=== PATIENT | male | born 1965 | race Caucasian/White ===

== ENCOUNTER 2017-04-27 10:13 | Observation (INO) | payer OTHER ==
--- NOTE | 2017-04-27 10:31 | ED ---
Head Injury - HPI Summary HPI Summary: 51M presents with head injury today. He states he was going to see a client and does not remember seeing the client and does not remember falling. The next thing he remembers is being back in his office. He lost consciousness for a couple minutes. He denies any chest pain or SOB. He denies any nausea or vomiting. he is on a baby aspirin. He admits to dizziness and a headache. He admits to right forearm pain. He denies any other pain. He denies any history of NC. Does not know when last tetanus is. Has large laceration that is actively bleeding to scalp. He is not on a blood thinner. He admits toneck pain. He is HIV positive. - History Of Current Complaint Chief Complaint: EDHeadInjury Stated Complaint: FALL AT WORK Time Seen by Provider: 04/27/17 10:20 Pain Intensity: 8 - Allergies/Home Medications Allergies/Adverse Reactions: Allergies Allergy/AdvReac Type Severity Reaction Status Date / Time Sulfa (Sulfonamide Allergy Rash Verified 04/27/17 10:41 Antibiotics) Home Medications: Home Medications ARIPiprazole TAB* [Abilify 15 MG TAB*] 15 mg PO DAILY 04/27/17 [History Confirmed 04/27/17] Aspirin EC Low Dose* [Ecotrin EC Low Dose 81 MG*] 81 mg PO DAILY 04/27/17 [ History Confirmed 04/27/17] Cobicistat [Tybost] 150 mg PO QPM 04/27/17 [History Confirmed 04/27/17] Diclofenac Sodium EC TAB* [Voltaren EC TAB*] 50 mg PO QAM 04/27/17 [History Confirmed 04/27/17] Dolutegravir (NF) [Tivicay (NF)] 50 mg PO BID 04/27/17 [History Confirmed ] Entecavir(NF) [Baraclude (NF)] 1 mg PO DAILY 04/27/17 [History Confirmed ] Finasteride TAB* [Proscar TAB*] 5 mg PO DAILY 04/27/17 [History Confirmed ] Gabapentin CAP(*) [Neurontin 400 mg CAP(*)] 800 mg PO QID 04/27/17 [History Confirmed 04/27/17] Lisinopril TAB* [Prinivil TAB*] 10 mg PO DAILY 04/27/17 [History Confirmed 04/27] Mirtazapine TAB* [Remeron TAB*] 15 mg PO BEDTIME 04/27/17 [History Confirmed ] Multivitamins/Minerals TAB* [Theragran/minerals TAB*] 1 tab PO DAILY 04/27/17 [ History Confirmed 04/27/17] OXcarbazepine TAB(*) [Trileptal 300 mg TAB(*)] 600 mg PO BID 04/27/17 [History Confirmed 04/27/17] Pravastatin (NF) [Pravachol (NF)] 60 mg PO DAILY 04/27/17 [History Confirmed ] Propranolol TAB* [Inderal TAB*] 120 mg PO BEDTIME 04/27/17 [History Confirmed ] Spironolactone TAB* [Aldactone TAB*] 25 mg PO DAILY 04/27/17 [History Confirmed 04/27/17] buPROPion TAB* [Wellbutrin TAB*] 20 mg PO BID 04/27/17 [History Confirmed ] metFORMIN* [Glucophage 1000 MG TAB *] 1,000 mg PO BID 04/27/17 [History Confirmed 04/27/17] PMH/Surg Hx/FS Hx/Imm Hx Endocrine/Hematology History: Reports: Hx Diabetes Cardiovascular History: Reports: Hx Hypertension Denies: Hx Myocardial Infarction Infectious Disease History: No Infectious Disease History: Reports: Hx Human Immunodeficiency Virus (HIV) Denies: Traveled Outside the [place] in Last 30 Days - Family History Known Family History: Positive: Hypertension Review of Systems Negative: Fever Negative: Chest Pain Negative: Shortness Of Breath Positive: Headache All Other Systems Reviewed And Are Negative: Yes Physical Exam Triage Information Reviewed: Yes Vital Signs On Initial Exam: Initial Vitals Temp Pulse Resp BP Pulse Ox 97.9 F 87 16 156/110 98 04/27/17 10:15 04/27/17 10:15 04/27/17 10:15 04/27/17 10:15 04/27/17 10:15 Vital Signs Reviewed: Yes Appearance: Positive: Well-Appearing Skin: Positive: Other - 7cm stellate laceration to back of scalp Eyes: Positive: Normal, EOMI, DARRYL, Conjunctiva Clear ENT: Positive: Normal ENT inspection, Pharyngeal erythema, TMs normal Neck: Positive: Other: - tenderness to neck Respiratory/Lung Sounds: Positive: Clear to Auscultation, Breath Sounds Present Cardiovascular: Positive: Normal, RRR Abdomen Description: Positive: Nontender, Soft Bowel Sounds: Positive: Present Musculoskeletal: Positive: Other - tenderness right forearm Neurological: Positive: Sensory/Motor Intact, Alert, Oriented to Person Place, Time, CN Intact II-III Psychiatric: Positive: Normal - [place] Coma Scale Best Eye Response: 4 - Spontaneous Best Motor Response: 6 - Obeys Commands Best Verbal Response: 5 - Oriented Coma Scale Total: 15 Procedures - Laceration/Wound Repair 1 Location: head Description: Irregular Anesthesia: Local, 1.0%, Epi Length, Depth and Shape: 7cm length in total stellate Irrigated w/ Saline (ccs): 200 Closure: Single Layer, [place] #__ - 5 Suture Type: Prolene - 4-0 Number of Sutures: 5 - placed 5 sutures and 5 sutures Layer Closure?: No Diagnostics - Vital Signs Vital Signs Temp Pulse Resp BP Pulse Ox 04/27/17 10:15 97.9 F 87 16 156/110 98 - Laboratory Result Diagrams: 04/27/17 13:20 04/27/17 13:20 Lab Statement: Any lab studies that have been ordered have been reviewed, and results considered in the medical decision making process. - Radiology forearm Xray Interpretation: No Acute Changes Radiology Interpretation Completed By: Radiologist - CT brain CT Interpretation: Positive (See Comments) - IMPRESSION: THERE IS A SMALL RIGHT- SIDED FALCINE SUBDURAL HEMATOMA MEASURING 0.2 CM IN DEPTH. PRELIMINARY FINDINGS WERE DISCUSSED WITH GAMALIEL HENRIQUEZ AT APPROXIMATELY 11:25 AM ON APRIL 27, 2017. CT Interpretation Completed By: ED Physician neck CT Interpretation: No Acute Changes CT Interpretation Completed By: Radiologist - EKG No standard instances Cardiac Rate: NL EKG Rhythm: Sinus Rhythm EKG Interpretation: sinus rhythm Head Injury Course/Dx Course Of Treatment: 51M presents with head injury today. He states he was going to see a client and does not remember seeing the client and does not remember falling. The next thing he remembers is being back in his office. He lost consciousness for a couple minutes. He denies any chest pain or SOB. He denies any nausea or vomiting. he is on a baby aspirin. He admits to dizziness and a headache. He admits to right forearm pain. He denies any other pain. He denies any history of NC. Does not know when last tetanus is. Has large laceration that is actively bleeding to scalp. He is not on a blood thinner. He admits to neck pain. He is HIV positive. placed 5 sutures and 5 girish into wound as continued to perfusely bleed. CT shows small subdural hematoma. spoke with dr berry said get repeat CT in 8 hours. does not need surgery. discussed with dr strong who agrees to admit for subdural and potential syncope work up - Diagnoses Differential Diagnosis/HQI/PQRI: Concussion With LOC, Contusion, Intracranial Bleed, Laceration Provider Diagnoses: Subdural hematoma, Scalp laceration, Head injury with loss of consciousness, Neck pain, Right forearm pain - Critical Care Time Critical Care Time: 75-104 min - 80 Discharge - Discharge Plan Condition: Stable Disposition: ADMITTED TO [facility] Referrals: Dayton Stewart MD [Primary Care Provider] -
--- NOTE | 2017-04-27 11:26 | RAD ---
INDICATION: Right forearm injury. TECHNIQUE: 2 views of the right forearm were obtained. FINDINGS: The bones are in normal alignment. No fracture is seen. IMPRESSION: NO EVIDENCE FOR FRACTURE.
--- NOTE | 2017-04-27 11:29 | RAD ---
HISTORY: Head injury, loss of consciousness COMPARISONS: None TECHNIQUE: Multiple contiguous axial CT scans were obtained of the head without intravenous contrast. FINDINGS: HEMORRHAGE/INFARCT: There is a small focus of falcine subdural along the anterior falx on axial image 21. Elsewhere, there is no hemorrhage or acute infarct. MASSES/SHIFT: There is no mass or shift. EXTRA-AXIAL SPACES: As noted above, there is a small falcine subdural in the right measuring 0.2 cm in depth. SULCI AND VENTRICLES: The sulci and ventricles are normal in size and position for the patient's stated age. CEREBRUM: There are no focal parenchymal abnormalities. BRAINSTEM: There are no focal parenchymal abnormalities. CEREBELLUM: There are no focal parenchymal abnormalities. VESSELS: The vessels are grossly normal. PARANASAL SINUSES: The left maxillary sinus is atelectatic. There is opacification of left maxillary sinus and the posterior ethmoid air cells on the right. ORBITS: The orbits are unremarkable. BONES AND SOFT TISSUE: There is soft tissue swelling of the occipital scalp. Incidentally noted is a dysraphic defect of the posterior arch of C1. OTHER: None IMPRESSION: THERE IS A SMALL RIGHT-SIDED FALCINE SUBDURAL HEMATOMA MEASURING 0.2 CM IN DEPTH. PRELIMINARY FINDINGS WERE DISCUSSED WITH GAMALIEL HENRIQUEZ AT APPROXIMATELY 11:25 AM ON APRIL 27, 2017.
--- NOTE | 2017-04-27 11:33 | RAD ---
INDICATION: Trauma, neck pain. COMPARISON: There are no prior studies available for comparison. TECHNIQUE: Contiguous axial sections were obtained from the skull base through the C7 vertebra. Images were reconstructed in the sagittal and coronal planes. FINDINGS: There is straightening of the cervical spine with loss of the normal cervical lordosis. No prevertebral soft tissue swelling or fracture is seen. There is spina bifida occulta at the C1 level posteriorly in the midline. At the C3-C4 level there is mild posterior uncinate process spurring and hypertrophic change within the facet joints. No significant spinal canal narrowing is present. There is mild bilateral neural foraminal narrowing. At the C3-C4 level there is mild posterior uncinate process spurring and hypertrophic change within the facet joints. No spinal canal narrowing is present. There is mild neural foraminal narrowing on the right side and moderate neural foraminal narrowing on the left side. At the C4-C5 level there is posterior uncinate process spurring. No spinal canal narrowing is present. There is mild to moderate bilateral neural foraminal narrowing. At the C5-C6 level there is moderate posterior uncinate process spurring. This causes mild spinal canal narrowing. There is moderate neural foraminal narrowing on the right side and mild neural foraminal narrowing on the left side. At the C6-C7 level there is mild posterior uncinate process spurring. No significant spinal canal narrowing is present. There is mild bilateral neural foraminal narrowing. IMPRESSION: 1. NO EVIDENCE FOR FRACTURE OR SUBLUXATION. 2. MODERATE CERVICAL SPONDYLOSIS.
[2017-04-27] MEDS ORDERED: Lidocaine 1% MPF wEPI 200,000* 30 ML SDV INJ ONE (12:16)
[2017-04-27] MEDS ORDERED: Lidocaine 1%* 5 ML VIAL ONE (12:22)
[2017-04-27] MEDS ORDERED: Lidocaine 2% EPI 1:200000 MPF* 20 ML VIAL ONE (12:22)
[2017-04-27] MEDS ORDERED: NS 0.9% 1000 ML* 1,000 ML IV ONE (13:09)
[2017-04-27] MEDS ORDERED: Tetan/Diph/Pertus SYR(Tdap)* 0.5 ML SYR(BOOSTRIX) use SYR IM ONE (13:10)
[2017-04-27 13:31] LABS: ABS Basophils 0.1 10^3/ul (0-0.2); ABS Eosinophils 0.1 10^3/ul (0-0.6); ABS Lymphocytes 3.6 10^3/ul (1.0-4.8); ABS Monocytes 0.7 10^3/ul (0-0.8); ABS Neutrophils 5.5 10^3/ul (1.5-7.7); ABS Nucleated RBC 0 10^3/ul; Eosinophil % 1.3 % (0-6); Hematocrit 43 % (42-52); Hemoglobin 14.5 g/dl (14.0-18.0); Lymphocyte % 35.8 % (25-47); Mean Corpuscular HGB Conc 34 g/dl (31-36); Mean Corpuscular Hemoglobin 30 pg (27-31); Mean Corpuscular Volume 88 fL (80-94); Mean Platelet Volume 10 um3 (7.4-10.4); Nucleated Red Blood Cells % 0.1; Platelet Count 155 10^3/ul (150-450); Red Blood Count 4.89 10^6/ul (4.0-5.4); Red Cell Distribution Width 12 % (10.5-15); White Blood Count 9.9 10^3/ul (3.5-10.8)
[2017-04-27] MEDS ORDERED: Morphine INJ* 2 MG/ML 1 ML CARPUJECT IV ONE (13:38)
[2017-04-27 13:51] LABS: EGFR Non-African American 73.2 (>60)
[2017-04-27] MEDS ORDERED: Dextrose 50% Syringe 50 ML* 25 GM/50 ML SYRINGE IV PUSH PRN (14:40)
[2017-04-27] MEDS ORDERED: Acetaminophen TAB* 325 MG PO PRN (17:03)
[2017-04-27] MEDS: Insulin LISPRO* 1 UNITS UNIT SUBCUT SCH (17:48)
[2017-04-27] MEDS: Gabapentin CAP(*) 400 MG PO SCH ×2 (17:55→22:38)
[2017-04-27] MEDS ORDERED: COBICISTAT 150 MG PO SCH (18:00)
--- NOTE | 2017-04-27 19:46 | HP ---
CC: Dr. Dayton Stewart, [place] * HISTORY AND PHYSICAL: DATE OF ADMISSION: 04/27/17 PRIMARY CARE PROVIDER: Dr. Dayton Stewart. ATTENDING PHYSICIAN: Dr. Kaden Bahena * (dictated by Kelsie Frey NP). CHIEF COMPLAINT: Fall with loss of consciousness. HISTORY OF PRESENT ILLNESS: Mr. Olmedo is a 51-year-old male with past medical history significant for diabetes mellitus, hypertension, HIV positive, gout, insomnia, and neurogenic bladder, who states he was in his usual state of health this morning and at work when he notes that he was supposed to be receiving a payment and going out to unlock a lock on a storage unit. He does not recall seeing the client or unlocking the storage locker. He reports waking up on the floor in his office. The neighbor stated that he had rung the door fuller, but he does not recall this either. He does not recall being outside or falling. There was blood noted outside where he had obviously fallen and hit his head outside. He denies any fever, chills, chest pain, cough , shortness of breath, nausea, or vomiting. He reports that he has chronic diarrhea and takes Imodium. He reports having a gout flare in his left heel and has been taking dong pills for that. He reports feeling lightheaded after the fall, but does not recall if he was lightheaded prior to the fall. He states he straight caths several times daily as needed for a neurogenic bladder. The patient was brought to the emergency room by EMS. In the ER, the patient had labs that were fairly unremarkable. His initial troponin was 0.00. He denied any chest pain. EKG showing a sinus rhythm, rate of 96, no acute signs of ischemia. There are no previous EKGs for comparison. He had a head CT showing a small right-sided subdural hematoma. C-spine that was negative and right forearm x-ray with no evidence for a fracture. He received sutures and girish to his occipital area of his head due to a large laceration. Due to the subdural hematoma, Dr. Lui was contacted and recommended admission with a repeat CT scan in 8 hours. PAST MEDICAL HISTORY: 1. Diabetes mellitus. 2. Hypertension. 3. HIV positive. 4. Gout. 5. Insomnia. 6. Neurogenic bladder. PAST SURGICAL HISTORY: Status post Aldo fundoplication. HOME MEDICATIONS: Include: 1. Metformin 1000 mg oral twice daily. 2. Diclofenac 50 mg oral every morning. 3. Spironolactone 25 mg oral daily. 4. Propranolol 120 mg oral daily at bedtime. 5. Pravastatin 60 mg oral daily. 6. Trileptal 600 mg oral twice daily. 7. Multivitamin 1 tablet daily. 8. Remeron 15 mg oral daily at bedtime. 9. Lisinopril 10 mg oral daily. 10. Gabapentin 800 mg oral 4 times daily. 11. Tivicay 50 mg oral twice daily. 12. Entecavir 1 mg oral daily. 13. Tybost 150 mg oral every evening. 14. Wellbutrin 20 mg oral twice daily. 15. Finasteride 5 mg oral daily. 16. Aspirin 81 mg oral daily. 17. Abilify 15 mg oral daily. ALLERGIES: SULFA. FAMILY HISTORY: The patient denies any family history of coronary artery disease. The patient's mother and father and both grandmothers, history of diabetes mellitus. The patient's mother and sister have a history of breast cancer. SOCIAL HISTORY: The patient is a former smoker. Reports he has not smoked in many years and only smoked when he was in the service. He rarely drinks alcohol. He denies recreational drug use. He lives with his partner, Glen, who will be his surrogate decision maker in the event he is unable to make decisions for himself. REVIEW OF SYSTEMS: I performed an 11-point review of systems. All the pertinent positives and negatives are mentioned in the history of present illness. The remaining review of systems is negative. PHYSICAL EXAMINATION GENERAL APPEARANCE: The patient is alert, pleasant, appears to be in no acute distress. HEENT: Normocephalic. The patient has a laceration to his occipital area with sutures and girish intact. Pupils are equal and reactive to light. Extraocular movements are intact. RESPIRATORY: There is no accessory muscle use. Lungs are clear to auscultation , bilateral. CARDIOVASCULAR: Regular rate and rhythm. S1 and S2 present. There are no murmurs, rubs, or gallops heard. ABDOMEN: Soft, nontender, nondistended. Bowel sounds present x4. EXTREMITIES: There is no lower extremity edema. DP and PT pulses are 2+ and symmetric. MUSCULOSKELETAL: There is no clubbing or cyanosis noted. The patient exhibits good strength in all extremities. NEUROLOGICAL: The patient is alert and oriented x4. Cranial nerves II through XII are grossly intact. The patient has equal strength, bilateral. PSYCHOLOGICAL: The patient is calm and cooperative. SKIN: The patient has an abrasion to his left lateral ankle in addition to laceration to the occipital area of his scalp that is open to air with sutures and girish present. DIAGNOSTIC STUDIES/LAB DATA: Sodium 133, potassium 4.7, chloride 103, CO2 22, BUN 16, creatinine 1.07, glucose 142. Troponin 0.00. White blood cell count 9.9, hemoglobin 14.9, hematocrit 43, platelet count 155. EKG from today shows a sinus rhythm, rate of 96. There are no acute signs of ischemia, there is a wandering baseline, some early repolarization. There are no previous EKGs for comparison. Head CT from today. Radiologist's impression: Small right-sided falcine subdural hematoma measuring 0.2 cm in depth. C-spine CT from today. Radiologist's impression: No evidence for fracture or subluxation. Moderate cervical spondylosis. Right forearm x-ray from today. Radiologist's impression: No evidence for fracture. IMPRESSION: Mr. Olmedo is a 51-year-old male with past medical history significant for human immunodeficiency virus, diabetes mellitus, hypertension, gout, insomnia, and a neurogenic bladder, who presented to the emergency room after a syncopal episode and was found to have a subdural hematoma. He will be admitted as an observation. ASSESSMENT/PLAN: 1. Subdural hematoma. Neurosurgery on-call has been contacted by the emergency room, who recommended the patient be admitted for observation with a repeat head CT scan in 8 hours. I have ordered a repeat CT scan for 8 hours after the previous one. The patient will have neuro checks every 4 hours. We will hold his aspirin and any chemical or DVT prophylaxis in the setting of the hematoma. 2. Syncope. The patient has no recollection of the events leading up to his fall or immediately after his fall. The patient will have an echo. We will do neuro checks. We will monitor him on telemetry to evaluate for any cardiac arrhythmias. 3. Human immunodeficiency virus. The patient will be continued on his home antiviral medications. 4. Depression. The patient will be continued on his home Wellbutrin. 5. Neurogenic bladder. The patient will be continued on his home finasteride and straight cath as needed. 6. Hypertension. The patient will be continued on his home lisinopril, spironolactone. 7. Diabetes mellitus. We will hold the patient's metformin. We will do fingersticks a.c. and h.s. I will place him on lispro sliding scale. 8. Hyperlipidemia. The patient will be continued on the statin. 9. Migraines. The patient will be continued on his home Pletal and propranolol. 10. Fluids, electrolytes, and nutrition. The patient will be on a consistent carbohydrate diet. 11. Code status. Full code. 12. DVT prophylaxis. The patient is at moderate risk. Will have SCDs. We will hold on chemical DVT prophylaxis in the setting of a subdural hematoma. 13. Disposition. Observation. TIME SPENT: Time for this admission was approximately 60 minutes, greater than half of that was spent with the patient and family discussing medications, past medical history, the events leading up to his arrival today, performing a physical examination. The case has been reviewed with the attending, Dr. Bahena, who agrees with the plan of care. Reviewed by MADELYN SIFUENTES-Quang 04/28/17 1556 [id number]/[facility] #: [id number] CECY
[2017-04-27] MEDS ORDERED: Morphine INJ* 2 MG/ML 1 ML CARPUJECT IV PRN (19:51)
[2017-04-27] MEDS: traMADol TAB* 50 MG PO PRN (20:47)
[2017-04-27] MEDS: Dolutegravir (NF) 50 MG TAB PO SCH (20:54)
--- NOTE | 2017-04-27 20:57 | RAD ---
INDICATION: "SDH" COMPARISON: Same day CT examination acquired at 1110 hours TECHNIQUE: Contiguous axial sections of the brain were obtained from the skull base to the vertex without contrast at 1959 hours. FINDINGS: The ventricles, cisterns and sulci are within normal limits. The webber-white matter differentiation is adequately maintained and there is no sulcal effacement. No significant focal abnormality or mass effect is present. Again seen adjacent to the falx cerebra I is a hyperattenuating focus measuring 7 x 3 mm that is unchanged from the most recent CT of the brain. Subgaleal hyperattenuation and thickening is again noted overlying the left of midline occiput. Surgical skin girish are seen as well. The visualized portion of the paranasal sinuses appear clear. The mastoid air cells are well aerated bilaterally. IMPRESSION: Small right-sided falcine subdural hematoma has not changed significantly since the most recent CT examination acquired at 1110 hours.
[2017-04-27] MEDS ORDERED: Mirtazapine TAB* 15 MG PO SCH (21:00)
[2017-04-27] MEDS ORDERED: Propranolol TAB* 60 MG PO SCH (21:00)
[2017-04-27] MEDS: OXcarbazepine TAB(*) 300 MG PO SCH (22:38)
--- NOTE | 2017-04-27 22:50 | CONS ---
CONSULTATION NOTE: DATE OF CONSULT: 04/27/17 HISTORY OF PRESENT ILLNESS: The patient is a very pleasant 51-year-old gentleman with a history of diabetes, hypertension, HIV, gout, insomnia, neurogenic bladder; who was reported to have sustained a fall earlier today. The patient does not recall the details of the fall and it was not a witnessed fall. The patient was brought to the emergency room and requested to consult on the patient by the ED physician regarding CT scan findings consistent with a small right frontal interhemispheric subdural hematoma. The patient does not recall the details of his fall. He had laceration to the back of his head which was repaired in the emergency room. The patient denies any visual or speech difficulties. He denies any hearing loss. Denies any seizures. He denies any neck or back pain. He denies any weakness, numbness, or tingling of his extremities. The patient does have a history of neurogenic bladder and he straight catheterized himself. He has a history of chronic diarrhea and he takes Imodium. He denies any urinary or GI incontinence at this time. PAST MEDICAL HISTORY: The patient has a history of diabetes, hypertension, HIV , gout, insomnia, and neurogenic bladder. PAST SURGICAL HISTORY: Aldo fundoplication. MEDICATIONS: The patient has a list of home medications includin. Metformin. 2. Diclofenac. 3. Spironolactone. 4. Propranolol. 5. Pravastatin. 6. Trileptal. 7. Multivitamin. 8. Remeron. 9. Lisinopril. 10. Gabapentin. 11. Entecavir. 12. Tybost. 13. Wellbutrin. 14. Finasteride. 15. Aspirin. 16. Abilify. ALLERGIES: SULFA. FAMILY HISTORY: Diabetes. SOCIAL HISTORY: Tobacco negative. Alcohol occasionally. Recreational drug use , negative. The patient is retired from the [employer] and has been on disability. PHYSICAL EXAM: The patient is initially in no acute distress. He has no tenderness to palpation of cervical, thoracic or lumbar spine. He has free range of motion of the cervical spine. He is awake, alert, and oriented x3. His pupils are equal and reactive. Cranial nerves II through XII grossly intact. Motor 5/5 in the lower extremities. No pronator drift. Sensory grossly intact to light touch. Deep tendon reflexes +1 bilateral. No clonus. No Babinski. Zuniga's negative. Straight leg raise negative in the supine position. DIAGNOSTIC STUDIES/LAB DATA: The patient had a CT scan of the brain revealing a small right frontal interhemispheric subdural hematoma. ASSESSMENT: The patient is a very pleasant 51-year-old gentleman with significant past medical history of diabetes, hypertension, depression, HIV, gout, insomnia, and neurogenic bladder who was reported to have sustained a fall and had CT scan findings consistent with a small interhemispheric subdural hematoma. PLAN: The patient was admitted for observation. Repeat CT scan this afternoon revealed no significant changes. The patient does have small hypodensity on the right temporal lobe. He is currently taking Trileptal and he remains neurologically intact. We recommend checking his coagulation status and consider MRI of the brain with and without contrast. The patient is undergoing a syncopal workup by Internal Medicine team. We greatly appreciate the Internal Medicine management. Thank you for allowing us to participate in the care of this patient. Please do not hesitate to contact our office in case you have any further questions or concerns regarding the care of this patient. [id number]/[facility] #: [id number] CECY
[2017-04-28] MEDS ORDERED: oxyCODONE/Acetamin 5/325 MG* TAB PO PRN (00:56)
[2017-04-28] MEDS: traMADol TAB* 50 MG PO PRN ×2 (03:41→09:01)
[2017-04-28] MEDS: OXcarbazepine TAB(*) 300 MG PO SCH (08:59)
[2017-04-28] MEDS: Gabapentin CAP(*) 400 MG PO SCH ×2 (08:59→13:29)
[2017-04-28] MEDS ORDERED: Spironolactone TAB* 25 MG PO SCH (09:00)
[2017-04-28] MEDS ORDERED: ENTECAVIR 0.5 MG PO SCH (09:00)
[2017-04-28] MEDS ORDERED: ARIPiprazole TAB* 15 MG PO SCH (09:00)
[2017-04-28] MEDS ORDERED: Multivitamins/Minerals TAB PO SCH (09:00)
[2017-04-28] MEDS ORDERED: Lisinopril TAB* 10 MG PO SCH (09:00)
[2017-04-28] MEDS ORDERED: Finasteride TAB* 5 MG PO SCH (09:00)
[2017-04-28] MEDS ORDERED: Atorvastatin* 10 MG TAB PO SCH (09:00)
[2017-04-28] MEDS: Insulin LISPRO* 1 UNITS UNIT SUBCUT SCH ×2 (09:03→13:28)
[2017-04-28] MEDS: Dolutegravir (NF) 50 MG TAB PO SCH (09:05)
[2017-04-28] MEDS ORDERED: Perflutren Lipid Microsphere* 3 ML VIAL ONE (11:28)
--- NOTE | 2017-04-28 14:03 | ECHO ---
Patient: DIANA LIMA [facility] Rec#: [id number] : 1965 Date: 04/28/2017 Age: 51y Height: 185.42 cm / 73.0 in Weight: 116.12 kg / 255.9 lbs Sex: M BSA: 2.39 Room#: 452 Admit Date#: 04/27/2017 Type: Inpatient Referring: Kelsie Aguilar NP Reading: Elmira Elliott MD Mission Systems Engineer: Kelsie Haley RDCS CC: Dayton Stewart MD Transthoracic Echocardiogram Indication: Syncope BP: 115/75 HR: 86 Rhythm: NSR Findings History: HTN, HIV, DM. Technical Comments: The study is technically difficult. The study is technically limited due to patient body habitus. Completed at 1309. Left Ventricle: The left ventricular chamber size is normal. Mild concentric left ventricular hypertrophy is observed. There is increased basal septal hypertrophy noted without evidence of an increased gradient across the left ventricular outflow tract. Left ventricular systolic function is at the lower limits of normal. The estimated ejection fraction is 50-55%. There is septal flattening of the interventricular septum consistent with right ventricular volume or pressure overload. mild. Abnormal left ventricular diastolic filling is observed, consistent with impaired relaxation. Left Atrium: The left atrium is mildly dilated. Right Ventricle: The right ventricle is mildly dilated. The right ventricular global systolic function is normal. Right Atrium: The right atrium is mildly dilated. Aortic Valve: The aortic valve is trileaflet. The aortic valve leaflets are mildly thickened. There is trace to mild aortic regurgitation. There is no evidence of aortic stenosis. Mitral Valve: The mitral valve leaflets are mildly thickened. There is a trace of mitral regurgitation. There is no evidence of mitral stenosis. Tricuspid Valve: The tricuspid valve leaflets are normal. There is trace to mild tricuspid regurgitation. Unable to estimate the right ventricular systolic pressure. There is no tricuspid stenosis. Pulmonic Valve: The pulmonic valve appears normal. There is a trace pulmonic regurgitation. There is no pulmonic stenosis. Pericardium: There is no significant pericardial effusion. A pericardial fat pad is visualized. Aorta: There is moderate dilatation of the ascending aorta. There is no dilatation of the aortic arch. The aortic root is normal in size. Pulmonary Artery: The main pulmonary artery is not well visualized. Venous: The inferior vena cava is dilated. There is a greater than 50% respiratory change in the inferior vena cava dimension. Contrast: Definity was used to optimize study. 4 mL of diluted Definity was utilized. Intravenous contrast was used to enhance endocardial border definition. Conclusions Mild concentric left ventricular hypertrophy is observed with additional septal prominance at the base. Left ventricular systolic function is at the lower limits of normal. The estimated ejection fraction is 50-55%. Abnormal left ventricular diastolic filling is observed, consistent with impaired relaxation. The right ventricle is mildly dilated and systolic function is normal. There is trace to mild aortic regurgitation. There is a trace of mitral regurgitation. There is trace to mild tricuspid regurgitation. There is moderate dilatation of the ascending aorta: 4.2 cm. The inferior vena cava is dilated. No prior echos available to compare. Measurements Name Value Normal Range RVIDd (AP) 2D 3.6 cm (0.9 - 2.6) RVDdMajor (2D) 4.8 cm (2.2 - 4.4) RAd ISD 4CH 5 cm (3.4 - 4.9) RA (A4C)W 4.1 cm (2.9 - 4.6) IVSd (2D) 1.1 cm (0.6 - 1) LVPWd (2D) 1.1 cm (0.6 - 1) LVIDd (2D) 4.3 cm (3.6 - 5.4) LVIDs (2D) 3 cm - LV FS (2D) 30 % (25 - 45) Aortic Annulus 2.2 cm (1.4 - 2.6) Ao root diameter (2D) 3.5 cm (2.1 - 3.5) Ascending Ao 4.2 cm (2.1 - 3.4) Aortic arch 3.2 cm (1.8 - 3.4) LA dimension (AP) 2D 4.8 cm (2.3 - 3.8) LAd ISD 4CH 4.5 cm (2.9 - 5.3) LA ISD 4CH W 4.6 cm (2.5 - 4.5) Name Value Normal Range LA ESV SP 4CH (A/L) 63 ml - LA ESV SP 2CH (A/L) 99 ml - LA ESV BP (A/L) 87 ml - LA ESV BP (A/L) index 37 ml/m2 - LA ESV SP 4CH (MOD) 61 ml - LA ESV SP 2CH (MOD) 92 ml - Name Value Normal Range MV E-wave Vmax 0.52 m/sec - MV deceleration time 167.9 msec - MV A-wave Vmax 0.68 m/sec - MV E:A ratio 0.77 ratio - LV septal e' Vmax 0.05 m/sec - LV lateral e' Vmax 0.05 m/sec - LV E:e' septal ratio 10 ratio - LV E:e' lateral ratio 10 ratio - Name Value Normal Range AV Vmax 1.6 m/sec - AV VTI 27.68 cm - AV peak gradient 10 mmHg - AV mean gradient 6.04 mmHg - LVOT Vmax 1.28 m/sec - LVOT VTI 26.03 cm - LVOT peak gradient 6.56 mmHg - LVOT mean gradient 3.57 mmHg - JESSICA Vmax 0.72 m/sec - Name Value Normal Range IVC diameter 2.3 cm - Name Value Normal Range PV Vmax 1.03 m/sec - PV peak gradient 4.29 mmHg -
[2017-04-28] MEDS: buPROPion TAB* 75 MG PO SCH (16:08)
[2017-04-28 17:27] VITALS: BP 107/70
[2017-04-28] MEDS ORDERED: buPROPion TAB* 100 MG PO SCH (21:00)
--- NOTE | 2017-04-29 17:15 | DS ---
DISCHARGE SUMMARY: DATE OF ADMISSION: 04/27/17 DATE OF DISCHARGE: 04/28/17 ADMITTING PROVIDER: Kelsie Bui NP. PRIMARY CARE PHYSICIAN: [facility] of [facility]. ATTENDING PHYSICIAN: Hung Ko MD CHIEF COMPLAINT: Fall with loss of consciousness. PRINCIPAL DIAGNOSIS: Syncope; acute coronary syndrome ruled out; possible vasovagal. HISTORY OF PRESENT ILLNESS AND HOSPITAL COURSE: Dg Olmedo is a 51-year- old male with past medical history significant for non-insulin dependent diabetes mellitus, hypertension, HIV, gout, insomnia, neurogenic bladder, who had a syncopal event outside of a storage locker unit on the day of admission. It was unwitnessed. He does no recall events leading up to the event until he was having his head bandaged. There was noted to be blood outside on the scene , where he must have hit his head. He did have some episodes of diarrhea in the last few days but this is not that unusual for him. He has also had a gout flare in his left heel and had been taking "dong pills" for that. He was admitted for syncopal workup. CT head in the ED showed a small right-sided subdural hematoma and Neurosurgery was consulted with Dr. Lui. A repeat CT head scan in 8 hours showed no significant change. He had troponins that were negative x3 and an echocardiogram, which showed ejection fraction of 50% to 55%. There were some mild septal flattening of the interventricular septum consistent with right ventricular volume or pressure overload and there was abnormal left ventricular diastolic filling observed consistent with impaired relaxation. There was moderate dilatation of the ascending aorta at 4.2 cm, trace to mild tricuspid regurg, trace mitral and trace- to-mild aortic regurgitation. Patient also had forearm x-ray of the right forearm, which showed no evidence of fracture. Cervical spine CT, which showed no evidence of fracture or subluxation and evidence of moderate cervical spondylosis. He was observed over telemetry. He had no evidence of arrhythmias. His initial EKG demonstrated no ST changes or T-wave inversions and was normal sinus rhythm. Patient was not hypoxic, had no recent travel or immobility. The neurosurgeon, Dr. Lui, recommended getting an MRI of the brain with and without contrast and this is recommended to be done as an outpatient. He is of note taking Trileptal he says for depression and has been for many years. Denies any history of seizures, although of note he is on some other psychoactive medications such as Abilify, Wellbutrin, Remeron, gabapentin, and the aforementioned Trileptal. DISCHARGE MEDICATIONS: Include and of note no changes: 1. Abilify 15 mg p.o. daily. 2. Cobicistat (Tybost) 150 mg p.o. q.p.m. 3. Dolutegravir (Tivicay) 50 mg p.o. b.i.d. 4. Entecavir (Baraclude) 1 mg p.o. daily. 5. Finasteride 5 mg p.o. daily. 6. Gabapentin 800 mg p.o. q.i.d. 7. Lisinopril 10 mg p.o. daily. 8. Remeron 15 mg p.o. daily at bedtime, one tab. 9. Multivitamin p.o. daily. 10. Trileptal 600 mg p.o. b.i.d. 11. Pravastatin 60 mg p.o. daily. 12. Propranolol 120 mg p.o. q.h.s. 13. Spironolactone 25 mg p.o. daily. 14. Aspirin 81 mg daily. 15. Wellbutrin 100 mg p.o. b.i.d. 16. Voltaren (diclofenac) 50 mg p.o. q.a.m. 17. Metformin 1000 mg p.o. b.i.d. DISCHARGE DIET: Carbohydrate consistent, heart healthy. ACTIVITY LEVEL: No restrictions. FOLLOWUP: Please follow up with Dayton Stewart of [facility]. Also recommend brain MRI with and without contrast per Dr. Lui, Neurosurgery recommendations. Patient was asked to record his blood pressures at home as well and bring to the next PCP visit. TIME SPENT ON DISCHARGE: 40 minutes. [id number]/[facility] #: [id number] CECY
== END 2017-04-28 18:30 | disposition home or self-care (01) ==
LOC: ED 10:13 → MEDTELE 14:42
PROVIDERS: ADMIT Internal Medicine; ATTEND Internal Medicine
DX: S01.91XA Laceration without foreign body of unspecified part of head, initial encounter (principal); S06.9X9A Unspecified intracranial injury with loss of consciousness of unspecified duration, initial encounter; S06.5X9A Traumatic subdural hemorrhage with loss of consciousness of unspecified duration, initial encounter; R51 Headache; M79.631 Pain in right forearm; M54.2 Cervicalgia; I10 Essential (primary) hypertension; M10.9 Gout, unspecified; G47.00 Insomnia, unspecified; E11.9 Type 2 diabetes mellitus without complications; Z79.82 Long term (current) use of aspirin; Z21 Asymptomatic human immunodeficiency virus [HIV] infection status; W19.XXXA Unspecified fall, initial encounter; Y92.9 Unspecified place or not applicable
CPT/HCPCS: 36415; 70450; 72125; 80053; 84484; 85025; 90471; 90715; 93005; 93306; 96361; 99283; A9270-GY; C8929; G0378; J2001; J2270

== ENCOUNTER 2020-07-26 09:34 | Inpatient (IN) ==
[2020-07-26] MEDS ORDERED: NS 0.9% 1000 ml BAG 1,000 ML IV ONE (10:27)
[2020-07-26 11:06] LABS: ABS Basophils 0.1 10^3/ul (0-0.2); ABS Eosinophils 0.1 10^3/ul (0-0.6); ABS Lymphocytes 2.8 10^3/ul (1.0-4.8); ABS Monocytes 0.5 10^3/ul (0-0.8); ABS Neutrophils 2.9 10^3/ul (1.5-7.7); Eosinophil % 1.5 %; Hematocrit 45 % (42-52); Hemoglobin 14.9 g/dL (14.0-18.0); Lymphocyte % 44.7 %; Mean Corpuscular HGB Conc 33 g/dL (31-36); Mean Corpuscular Hemoglobin 31 pg (27-31); Mean Corpuscular Volume 94 fL (80-94); Mean Platelet Volume 9.9 fL (7.4-10.4); Nucleated Red Blood Cells % 0.1; Platelet Count 126 10^3/uL (150-450); Red Blood Count 4.77 10^6 /uL (4.18-5.48); Red Cell Distribution Width 12 % (10-15); White Blood Count 6.4 10^3/uL (3.5-10.8)
[2020-07-26 11:21] LABS: Albumin 4.2 g/dL (3.2-5.2); Albumin/Globulin Ratio 1.3 (1-3); Calcium 9.3 mg/dL (8.6-10.3); EGFR African American 92.1 (>60); EGFR Non-African American 76.1 (>60); Globulin 3.2 g/dL (2-4); Magnesium 1.5 mg/dL (1.9-2.7); Potassium 4.6 mmol/L (3.5-5.0); Total Bilirubin 0.6 mg/dL (0.2-1.0); Total Protein 7.4 g/dL (6.4-8.9)
[2020-07-26] MEDS ORDERED: Iodixanol (CONTRAST) 320 MG/ML 100 ML SDV IV ONE (11:41)
[2020-07-26] MEDS ORDERED: Magnesium Sulfate 2 gm BAG 2 GM/50 ML BAG IVPB ONE (11:44)
[2020-07-26 14:25] LABS: Body Fluid Source Cerebral Spinal
[2020-07-26 14:29] LABS: CSF Glucose 104 mg/dL (40-70)
[2020-07-26] MEDS ORDERED: diPHENhydraMINE IV 50 MG/ML 1 ml VIAL (BENADRYL) IM ONE (15:15)
[2020-07-26] MEDS ORDERED: Prochlorperazine 5 mg/ml 2 ml VIAL (10 mg) IV ONE (15:15)
[2020-07-26 16:16] LABS: C Reactive Protein 1.71 mg/L (<8.01)
[2020-07-26 17:23] LABS: Erythrocyte Sed Rate 12 mm/Hr (0-19)
[2020-07-26] MEDS ORDERED: Dextrose 50% Syringe 50 ml 25 GM/50 ML SYRINGE IV PUSH PRN (18:50)
[2020-07-26] MEDS ORDERED: Insulin ASPART (NF) 1 UNIT SUBCUT SCH (19:00)
[2020-07-26] MEDS ORDERED: Gadoteridol (CONTRAST) 279.3 MG/ML 10 ML IV ONE (19:46)
[2020-07-26 20:18] LABS: HDL Cholesterol 28.8 mg/dL
[2020-07-26 20:33] LABS: TSH Ultra Thyroid Stim Horm 0.98 mcIU/mL (0.34-5.60)
[2020-07-26 20:35] LABS: Free T4 0.84 ng/dL (0.61-1.12)
[2020-07-26] MEDS ORDERED: Insulin GLARGINE 100 un/ml 10 ml VIAL SUBCUT SCH (21:00)
[2020-07-26] MEDS: Diclofenac Sod EC 25 mg TAB PO SCH (22:22)
[2020-07-26] MEDS: DOLUTEGRAVIR 50 MG PO SCH (22:28)
[2020-07-27 07:41] VITALS: BP 156/95
[2020-07-27 08:20] LABS: ABS Eosinophils 0.1 10^3/ul (0-0.6); ABS Lymphocytes 2.3 10^3/ul (1.0-4.8); ABS Monocytes 0.5 10^3/ul (0-0.8); Eosinophil % 1.7 %; Hematocrit 43 % (42-52); Hemoglobin 14.3 g/dL (14.0-18.0); Lymphocyte % 39.3 %; Mean Corpuscular HGB Conc 34 g/dL (31-36); Mean Corpuscular Hemoglobin 31 pg (27-31); Mean Corpuscular Volume 93 fL (80-94); Mean Platelet Volume 10.1 fL (7.4-10.4); Platelet Count 124 10^3/uL (150-450); Red Blood Count 4.57 10^6 /uL (4.18-5.48); Red Cell Distribution Width 13 % (10-15)
[2020-07-27] MEDS: DOLUTEGRAVIR 50 MG PO SCH (08:31)
[2020-07-27] MEDS: Diclofenac Sod EC 25 mg TAB PO SCH (08:33)
[2020-07-27 08:40] LABS: Calcium 9.6 mg/dL (8.6-10.3); EGFR African American 80.2 (>60); EGFR Non-African American 66.3 (>60); Magnesium 1.6 mg/dL (1.9-2.7); Potassium 4.5 mmol/L (3.5-5.0)
[2020-07-27] MEDS ORDERED: ENTECAVIR 0.5 MG PO SCH (09:00)
[2020-07-27] MEDS ORDERED: Multivitamins/Minerals TAB PO SCH (09:00)
[2020-07-27] MEDS ORDERED: Magnesium Sulf 4 GM/100 ML IV 4,000 MG/100 ML BAG IVPB ONE (10:00)
[2020-07-27 15:06] LABS: CSF VDRL Negative (Negative)
[2020-07-27] MEDS ORDERED: COBICISTAT 150 MG PO SCH (18:00)
== END 2020-07-27 13:40 | disposition home or self-care (01) | DRG 975 ==
LOC: ED 09:34 → MEDTELE 18:32
PROVIDERS: ADMIT Internal Medicine; ATTEND Internal Medicine

== ENCOUNTER 2022-12-05 12:30 | Inpatient (IN) ==
[2022-12-05 13:16] LABS: ABS Basophils 0.1 10^3/uL (0.0-0.1); ABS Monocytes 1.4 10^3/uL (0.0-1.1); ABS Neutrophils 9.4 10^3/uL (1.5-7.6); ABS Nucleated RBC 0.03 10^3/ul; Eosinophil % 0.1 %; Hematocrit 41.7 % (38-53); Lymphocyte % 15.3 %; Mean Corpuscular Hemoglobin 30.1 pg (27-33); Mean Corpuscular Hgb Conc 33.6 g/dL (31-36); Mean Corpuscular Volume 89.8 fL (80-97); Mean Platelet Volume 9.6 fL (7.5-11.2); Nucleated Red Blood Cells % 0.2 /100 WBC (0.0-0.4); Platelet Count 111 10^3/uL (150-450); Red Blood Count 4.65 10^6/uL (4.06-5.63); Red Cell Distribution Width 13.1 % (12-17); White Blood Count 12.9 10^3/uL (3.6-10.2)
[2022-12-05 13:20] LABS: INR 1.15 (0.83-1.13)
[2022-12-05 13:26] LABS: Albumin 4.2 g/dL (3.2-5.2); Albumin/Globulin Ratio 1.2 (1-3); C Reactive Protein 41.57 mg/L (<8.01); Calcium 9.6 mg/dL (8.6-10.3); Creatinine, Serum 1.19 mg/dL (0.67-1.17); Globulin 3.5 g/dL (2-4); Potassium 4.6 mmol/L (3.5-5.0); Total Bilirubin 0.6 mg/dL (0.2-1.0); Total Protein 7.7 g/dL (6.4-8.9); eGFR CKD-EPI 71.7 (>60)
[2022-12-05 13:32] LABS: Urine Appearance Cloudy; Urine Bilirubin Negative (Negative); Urine Blood 1+ (Negative); Urine Color Yellow; Urine Glucose Negative (Negative); Urine Ketones Negative (Negative); Urine Nitrite Positive (Negative); Urine Protein 2+(100 mg/dL) (Negative); Urine Specific Gravity 1.015 (1.002-1.030); Urine Urobilinogen Negative (Negative)
[2022-12-05 13:39] LABS: Urine Bacteria 3+ (Absent); Urine Red Blood Cell Trace(0-2/hpf) (Absent); Urine White Blood Cell 3+(>20/hpf) (Absent)
[2022-12-05] MEDS ORDERED: cefTRIAXone 1 gm/50 mL D5W 1 GM/50 ML BAG IV ONE (14:27)
[2022-12-05] MEDS ORDERED: NS 0.9% 1000 ml BAG 1,000 ML IV ONE (14:27)
[2022-12-05] MEDS ORDERED: Dextrose 50% Syringe 50 ml 25 GM/50 ML SYRINGE IV PUSH PRN (21:06)
[2022-12-05] MEDS ORDERED: Ondansetron 4 mg VIAL 2 MG/ML 2 ml VIAL IV PRN (21:11)
[2022-12-05] MEDS ORDERED: Acetaminophen IV 1 GM/100ML 1,000 MG/100 ML BAG IV PRN (21:12)
[2022-12-05] MEDS ORDERED: Enoxaparin 40 MG/0.4 ML SYR SUBCUT SCH (22:00)
[2022-12-05] MEDS ORDERED: Polyethylene Glycol 3350 17 GM PACKET PO PRN (22:22)
[2022-12-05] MEDS ORDERED: Magnesium Hydroxide LIQ 30 ML UDC PO PRN (22:22)
[2022-12-05] MEDS ORDERED: Senna TAB 8.6 mg TAB PO PRN (22:22)
[2022-12-05] MEDS: DOLUTEGRAVIR 50 MG PO SCH (22:53)
[2022-12-05] MEDS: Carbidopa/Levodop 25/100 MG TAB PO SCH (22:53)
[2022-12-05] MEDS: Insulin GLARGINE 100 un/ml 10 ml VIAL SUBCUT SCH (22:54)
[2022-12-05] MEDS: COBICISTAT 150 MG PO SCH (22:54)
[2022-12-05] MEDS ORDERED: Magnesium Hydroxide LIQ 30 ML UDC PO SCH (23:00)
[2022-12-05] MEDS: Propranolol 80 mg TAB PO SCH (23:10)
[2022-12-06 06:46] LABS: ABS Lymphocytes 2.8 10^3/uL (1.0-4.8); ABS Monocytes 1.1 10^3/uL (0.0-1.1); Eosinophil % 0.2 %; Hematocrit 40.5 % (38-53); Hemoglobin 13.6 g/dL (13.2-16.3); Lymphocyte % 19.9 %; Mean Corpuscular Hemoglobin 30.6 pg (27-33); Mean Corpuscular Hgb Conc 33.5 g/dL (31-36); Mean Corpuscular Volume 91.4 fL (80-97); Platelet Count 111 10^3/uL (150-450); Red Blood Count 4.43 10^6/uL (4.06-5.63); Red Cell Distribution Width 13.4 % (12-17)
[2022-12-06 07:20] LABS: Calcium 8.3 mg/dL (8.6-10.3); Creatinine, Serum 1.24 mg/dL (0.67-1.17); Magnesium 1.5 mg/dL (1.9-2.7); Potassium 4.3 mmol/L (3.5-5.0); eGFR CKD-EPI 68.2 (>60)
[2022-12-06 07:34] LABS: TSH Ultra Thyroid Stim Horm 1.42 mcIU/mL (0.34-5.60)
[2022-12-06] MEDS: Carbidopa/Levodop 25/100 MG TAB PO SCH ×3 (07:51→20:12)
[2022-12-06] MEDS ORDERED: Magnesium Sulfate 2 gm BAG 2 GM/50 ML BAG IVPB ONE (08:13)
[2022-12-06] MEDS ORDERED: Lactated Ringers 1000 ml BAG 500 ML IV ONE (09:09)
[2022-12-06] MEDS: DOLUTEGRAVIR 50 MG PO SCH ×2 (09:40→20:16)
[2022-12-06] MEDS: CMCS: Entecavir 0.5 mg TAB (NF) PO SCH (09:40)
[2022-12-06] MEDS ORDERED: cefTRIAXone 1 gm/50 mL D5W 1 GM/50 ML BAG IV SCH (15:00)
[2022-12-06] MEDS: Acetaminophen IV 1 GM/100ML 1,000 MG/100 ML BAG IV PRN (20:04)
[2022-12-06] MEDS: Insulin GLARGINE 100 un/ml 10 ml VIAL SUBCUT SCH (20:09)
[2022-12-06] MEDS: Propranolol 80 mg TAB PO SCH (20:14)
[2022-12-06] MEDS: COBICISTAT 150 MG PO SCH (20:16)
[2022-12-07] MEDS: Acetaminophen IV 1 GM/100ML 1,000 MG/100 ML BAG IV PRN (02:34)
[2022-12-07 02:35] LABS: ABS Basophils 0.1 10^3/uL (0.0-0.1); ABS Lymphocytes 1.9 10^3/uL (1.0-4.8); ABS Monocytes 0.8 10^3/uL (0.0-1.1); ABS Neutrophils 6.2 10^3/uL (1.5-7.6); Eosinophil % 0.5 %; Hematocrit 37.1 % (38-53); Hemoglobin 12.5 g/dL (13.2-16.3); Mean Corpuscular Hemoglobin 30.5 pg (27-33); Mean Corpuscular Hgb Conc 33.8 g/dL (31-36); Mean Corpuscular Volume 90.4 fL (80-97); Mean Platelet Volume 9.8 fL (7.5-11.2); Platelet Count 90 10^3/uL (150-450); Red Cell Distribution Width 13.1 % (12-17)
[2022-12-07 06:23] LABS: ABS Lymphocytes 1.9 10^3/uL (1.0-4.8); ABS Monocytes 0.9 10^3/uL (0.0-1.1); ABS Neutrophils 5.1 10^3/uL (1.5-7.6); ABS Nucleated RBC 0.01 10^3/ul; Eosinophil % 0.6 %; Hemoglobin 12.8 g/dL (13.2-16.3); Lymphocyte % 24.1 %; Mean Corpuscular Hgb Conc 34.6 g/dL (31-36); Mean Corpuscular Volume 89.8 fL (80-97); Mean Platelet Volume 9.3 fL (7.5-11.2); Nucleated Red Blood Cells % 0.1 /100 WBC (0.0-0.4); Platelet Count 88 10^3/uL (150-450); Red Blood Count 4.12 10^6/uL (4.06-5.63); Red Cell Distribution Width 12.9 % (12-17)
[2022-12-07 06:41] LABS: Calcium 8.4 mg/dL (8.6-10.3); Creatinine, Serum 1.28 mg/dL (0.67-1.17); Magnesium 1.6 mg/dL (1.9-2.7); Potassium 4.2 mmol/L (3.5-5.0); eGFR CKD-EPI 65.7 (>60)
[2022-12-07] MEDS ORDERED: ZOSYN 3.375 GM x ONE DOSE over 30 miuntes IV (07:00)
[2022-12-07] MEDS ORDERED: Zosyn per Pharmacy NOTE FOLLOW UP SCH (07:00)
[2022-12-07] MEDS ORDERED: Vancomycin per Pharmacy 1 EA NOTE FOLLOW UP SCH (07:00)
[2022-12-07] MEDS ORDERED: Vancomycin 2,000 MG in NS 0.9% 500 ml BAG 500 ML IVPB ONE (08:00)
[2022-12-07 10:40] LABS: C Reactive Protein 108.13 mg/L (<8.01)
[2022-12-07] MEDS: Carbidopa/Levodop 25/100 MG TAB PO SCH ×3 (10:44→21:32)
[2022-12-07] MEDS: CMCS: Entecavir 0.5 mg TAB (NF) PO SCH (10:45)
[2022-12-07] MEDS: DOLUTEGRAVIR 50 MG PO SCH ×3 (10:49→21:29)
[2022-12-07] MEDS ORDERED: fentaNYL 100 mcg/2 ml 50 MCG/ML VIAL ONE (12:20)
[2022-12-07] MEDS: ZOSYN 3.375 GM Q8H per EXTENDED INFUSION IV SCH ×2 (14:26→23:22)
[2022-12-07] MEDS: EMTRICITABINE PO SCH (14:39)
[2022-12-07] MEDS: TENOFOVIR ALAFENAMIDE PO SCH (14:39)
[2022-12-07 14:50] LABS: Body Fluid WBC 9 /mcL
[2022-12-07 15:24] LABS: Body Fluid Mono 1 %; Body Fluid Total Cells Counted 131
[2022-12-07 15:25] LABS: Body Fluid Appearance Cloudy; Body Fluid Color Pink; Body Fluid Source Synovial Fluid
[2022-12-07] MEDS ORDERED: fentaNYL 100 mcg/2 ml 50 MCG/ML VIAL IV PRN (16:09)
[2022-12-07] MEDS ORDERED: HYDROcodone/ACETAMIN 5/325 mg TAB PO PRN (16:09)
[2022-12-07] MEDS ORDERED: Buffered Lidocaine 1% SYRIN 1 ml INTRADERM ONE (16:09)
[2022-12-07] MEDS ORDERED: Naloxone 0.4 mg VIAL 0.4 mg/ml 1 ml VIAL IV PRN (16:09)
[2022-12-07] MEDS ORDERED: Metoclopramide 5 MG/ML VIAL (10 mg) IV PRN (16:09)
[2022-12-07] MEDS ORDERED: Ondansetron 4 mg VIAL 2 MG/ML 2 ml VIAL IV PRN (16:09)
[2022-12-07] MEDS ORDERED: Lactated Ringers 1000 ml BAG 1,000 ML IV SCH (17:00)
[2022-12-07] MEDS ORDERED: Enoxaparin 40 MG/0.4 ML SYR SUBCUT ONE (20:00)
[2022-12-07] MEDS: Propranolol 80 mg TAB PO SCH (21:29)
[2022-12-07] MEDS: DARUNAVIR PO SCH (21:30)
[2022-12-07] MEDS: COBICISTAT PO SCH (21:30)
[2022-12-07] MEDS: Insulin GLARGINE 100 un/ml 10 ml VIAL SUBCUT SCH (21:33)
[2022-12-08 05:53] LABS: ABS Lymphocytes 2.6 10^3/uL (1.0-4.8); ABS Monocytes 1.1 10^3/uL (0.0-1.1); ABS Neutrophils 4.2 10^3/uL (1.5-7.6); ABS Nucleated RBC 0.01 10^3/ul; Eosinophil % 0.5 %; Hematocrit 37.8 % (38-53); Hemoglobin 12.8 g/dL (13.2-16.3); Mean Corpuscular Hemoglobin 30.4 pg (27-33); Mean Corpuscular Hgb Conc 33.9 g/dL (31-36); Mean Corpuscular Volume 89.7 fL (80-97); Mean Platelet Volume 9.9 fL (7.5-11.2); Nucleated Red Blood Cells % 0.1 /100 WBC (0.0-0.4); Platelet Count 95 10^3/uL (150-450); Red Blood Count 4.21 10^6/uL (4.06-5.63); Red Cell Distribution Width 13.2 % (12-17)
[2022-12-08] MEDS: ZOSYN 3.375 GM Q8H per EXTENDED INFUSION IV SCH ×3 (05:58→22:30)
[2022-12-08 06:11] LABS: Calcium 8.2 mg/dL (8.6-10.3); Creatinine, Serum 1.25 mg/dL (0.67-1.17); eGFR CKD-EPI 67.6 (>60)
[2022-12-08] MEDS: Acetaminophen IV 1 GM/100ML 1,000 MG/100 ML BAG IV PRN ×2 (06:25→20:04)
[2022-12-08] MEDS: TENOFOVIR ALAFENAMIDE PO SCH (08:47)
[2022-12-08] MEDS: CMCS: Entecavir 0.5 mg TAB (NF) PO SCH (08:47)
[2022-12-08] MEDS: EMTRICITABINE PO SCH (08:47)
[2022-12-08] MEDS: Carbidopa/Levodop 25/100 MG TAB PO SCH ×3 (08:49→20:29)
[2022-12-08] MEDS: DOLUTEGRAVIR 50 MG PO SCH ×3 (09:00→20:39)
[2022-12-08] MEDS ORDERED: Vancomycin 1,250 MG in NS 0.9% 250 ml 250 ML IVPB SCH (10:00)
[2022-12-08] MEDS: Enoxaparin 40 MG/0.4 ML SYR SUBCUT SCH (11:41)
[2022-12-08] MEDS: DARUNAVIR PO SCH (20:29)
[2022-12-08] MEDS: Propranolol 80 mg TAB PO SCH (20:29)
[2022-12-08] MEDS: COBICISTAT PO SCH (20:29)
[2022-12-08] MEDS: Insulin GLARGINE 100 un/ml 10 ml VIAL SUBCUT SCH (20:32)
[2022-12-08] MEDS ORDERED: Magnesium Hydroxide LIQ 30 ML UDC PO SCH (21:00)
[2022-12-09] MEDS: ZOSYN 3.375 GM Q8H per EXTENDED INFUSION IV SCH ×2 (06:11→19:22)
[2022-12-09] MEDS: Carbidopa/Levodop 25/100 MG TAB PO SCH ×3 (09:30→21:32)
[2022-12-09] MEDS ORDERED: Vancomycin Trough Check NOTE FOLLOW UP ONE (09:30)
[2022-12-09] MEDS: TENOFOVIR ALAFENAMIDE PO SCH (09:31)
[2022-12-09] MEDS: EMTRICITABINE PO SCH (09:31)
[2022-12-09] MEDS: DOLUTEGRAVIR 50 MG PO SCH ×2 (09:31→21:34)
[2022-12-09] MEDS: CMCS: Entecavir 0.5 mg TAB (NF) PO SCH (09:33)
[2022-12-09] MEDS: Enoxaparin 40 MG/0.4 ML SYR SUBCUT SCH (09:34)
[2022-12-09] MEDS ORDERED: Lactated Ringers 1000 ml BAG 1,000 ML IV ONE (10:02)
[2022-12-09 10:10] LABS: Creatinine, Serum 1.34 mg/dL (0.67-1.17); eGFR CKD-EPI 62.2 (>60)
[2022-12-09 10:35] LABS: ABS Eosinophils 0.1 10^3/uL (0.0-0.5); ABS Lymphocytes 2.2 10^3/uL (1.0-4.8); ABS Monocytes 0.6 10^3/uL (0.0-1.1); ABS Neutrophils 2.8 10^3/uL (1.5-7.6); ABS Nucleated RBC 0.01 10^3/ul; Eosinophil % 1.5 %; Hematocrit 40.3 % (38-53); Hemoglobin 13.7 g/dL (13.2-16.3); Lymphocyte % 38.4 %; Mean Corpuscular Hemoglobin 30.2 pg (27-33); Mean Corpuscular Hgb Conc 33.9 g/dL (31-36); Mean Corpuscular Volume 89.1 fL (80-97); Mean Platelet Volume 9.3 fL (7.5-11.2); Nucleated Red Blood Cells % 0.2 /100 WBC (0.0-0.4); Platelet Count 116 10^3/uL (150-450); Red Blood Count 4.52 10^6/uL (4.06-5.63); Red Cell Distribution Width 12.9 % (12-17); White Blood Count 5.8 10^3/uL (3.6-10.2)
[2022-12-09 10:37] LABS: Vancomycin Trough 3.7 mcg/mL
[2022-12-09 10:57] LABS: ALT 24 U/L (7-52); AST 26 U/L (13-39); Albumin 3.9 g/dL (3.2-5.2); Albumin/Globulin Ratio 1.1 (1-3); Alkaline Phosphatase 46 U/L (35-149); Anion Gap 8 mmol/L (2-16); Blood Urea Nitrogen 18 mg/dL (6-24); CO2 Carbon Dioxide 23 mmol/L (22-32); Calcium 9.2 mg/dL (8.6-10.3); Chloride 104 mmol/L (101-111); Globulin 3.7 g/dL (2-4); Glucose 124 mg/dL (70-100); Lipase 60 U/L (11.0-82.0); Potassium 4.1 mmol/L (3.5-5.0); Sodium 135 mmol/L (135-145); Total Protein 7.6 g/dL (6.4-8.9)
[2022-12-09 10:58] LABS: CRP High Sensitivity > 80.00 mg/L (<2.00)
[2022-12-09] MEDS ORDERED: HYDROmorphone 0.5 MG/0.5 ML SYRINGE IV SCH (15:00)
[2022-12-09] MEDS ORDERED: HYDROmorphone 0.5 MG/0.5 ML SYRINGE IV PRN (15:06)
[2022-12-09 15:35] LABS: B. burgdorferi PCR Negative (Negative); B. garinii/B. afzellii PCR Negative (Negative); Lyme Disease Source SYNOVIAL FLUID
[2022-12-09] MEDS ORDERED: ZOSYN 3.375 GM Q8H per EXTENDED INFUSION IV SCH (19:00)
[2022-12-09] MEDS ORDERED: Zosyn per Pharmacy NOTE FOLLOW UP SCH (19:00)
[2022-12-09] MEDS ORDERED: ZOSYN 3.375 GM x ONE DOSE over 30 miuntes IV (19:30)
[2022-12-09] MEDS: Propranolol 80 mg TAB PO SCH (21:33)
[2022-12-09] MEDS: COBICISTAT PO SCH (21:34)
[2022-12-09] MEDS: DARUNAVIR PO SCH (21:34)
[2022-12-09] MEDS: Pantoprazole VIAL 40 MG VIAL IV SCH (21:38)
[2022-12-09] MEDS: Insulin GLARGINE 100 un/ml 10 ml VIAL SUBCUT SCH (22:56)
[2022-12-10] MEDS: ZOSYN 3.375 GM Q8H per EXTENDED INFUSION IV SCH ×3 (02:20→17:28)
[2022-12-10 06:24] LABS: ABS Eosinophils 0.1 10^3/uL (0.0-0.5); ABS Lymphocytes 2.2 10^3/uL (1.0-4.8); ABS Monocytes 0.7 10^3/uL (0.0-1.1); ABS Neutrophils 3.1 10^3/uL (1.5-7.6); ABS Nucleated RBC 0.01 10^3/ul; Eosinophil % 2.1 %; Hematocrit 40.6 % (38-53); Hemoglobin 13.8 g/dL (13.2-16.3); Lymphocyte % 35.5 %; Mean Corpuscular Hemoglobin 30.3 pg (27-33); Mean Corpuscular Hgb Conc 33.9 g/dL (31-36); Mean Corpuscular Volume 89.4 fL (80-97); Mean Platelet Volume 9.9 fL (7.5-11.2); Nucleated Red Blood Cells % 0.2 /100 WBC (0.0-0.4); Platelet Count 126 10^3/uL (150-450); Red Blood Count 4.55 10^6/uL (4.06-5.63); Red Cell Distribution Width 12.9 % (12-17); White Blood Count 6.1 10^3/uL (3.6-10.2)
[2022-12-10 06:50] LABS: Albumin 3.6 g/dL (3.2-5.2); Calcium 9.1 mg/dL (8.6-10.3); Creatinine, Serum 1.2 mg/dL (0.67-1.17); Globulin 3.5 g/dL (2-4); Potassium 4.1 mmol/L (3.5-5.0); Total Bilirubin 0.7 mg/dL (0.2-1.0); Total Protein 7.1 g/dL (6.4-8.9)
[2022-12-10] MEDS: Acetaminophen IV 1 GM/100ML 1,000 MG/100 ML BAG IV PRN (08:21)
[2022-12-10] MEDS: Carbidopa/Levodop 25/100 MG TAB PO SCH ×3 (09:17→21:30)
[2022-12-10] MEDS: CMCS: Entecavir 0.5 mg TAB (NF) PO SCH (09:19)
[2022-12-10] MEDS: DOLUTEGRAVIR 50 MG PO SCH ×2 (09:20→21:31)
[2022-12-10] MEDS: TENOFOVIR ALAFENAMIDE PO SCH (09:21)
[2022-12-10] MEDS: EMTRICITABINE PO SCH (09:21)
[2022-12-10] MEDS: Enoxaparin 40 MG/0.4 ML SYR SUBCUT SCH (09:29)
[2022-12-10] MEDS ORDERED: SEMAGLUTIDE 1 MG SUBCUT SCH ×2 (15:00→16:00)
[2022-12-10 18:02] LABS: Anaplasma phagocytophilum Negative (Negative); B. miyamotoi PCR, B Negative (Negative); Babesia divergens/MO-1 Negative (Negative); Babesia ducani Negative (Negative); Ehrlichia chaffeensis Negative (Negative); Ehrlichia ewingii/canis Negative (Negative); Ehrlichia muris eauclairensis Negative (Negative)
[2022-12-10] MEDS ORDERED: NON FORMULARY MED (Semaglutide [Ozempic] 0.25 mg or 0.5 mg(2 mg/1.5 mL) Pen Injector) SUBCUT SCH (20:59)
[2022-12-10] MEDS: Pantoprazole VIAL 40 MG VIAL IV SCH (21:30)
[2022-12-10] MEDS: COBICISTAT PO SCH (21:31)
[2022-12-10] MEDS: DARUNAVIR PO SCH (21:31)
[2022-12-10] MEDS: Insulin GLARGINE 100 un/ml 10 ml VIAL SUBCUT SCH (21:32)
[2022-12-10] MEDS: Propranolol 80 mg TAB PO SCH (21:33)
[2022-12-11] MEDS: ZOSYN 3.375 GM Q8H per EXTENDED INFUSION IV SCH ×2 (01:49→08:59)
[2022-12-11 07:05] LABS: ABS Basophils 0.1 10^3/uL (0.0-0.1); ABS Eosinophils 0.2 10^3/uL (0.0-0.5); ABS Lymphocytes 2.1 10^3/uL (1.0-4.8); ABS Monocytes 0.6 10^3/uL (0.0-1.1); ABS Neutrophils 3.2 10^3/uL (1.5-7.6); ABS Nucleated RBC 0.01 10^3/ul; Eosinophil % 2.8 %; Hematocrit 39.9 % (38-53); Hemoglobin 13.7 g/dL (13.2-16.3); Lymphocyte % 34.9 %; Mean Corpuscular Hemoglobin 30.7 pg (27-33); Mean Corpuscular Hgb Conc 34.4 g/dL (31-36); Mean Corpuscular Volume 89.3 fL (80-97); Mean Platelet Volume 10.1 fL (7.5-11.2); Nucleated Red Blood Cells % 0.2 /100 WBC (0.0-0.4); Platelet Count 161 10^3/uL (150-450); Red Blood Count 4.47 10^6/uL (4.06-5.63); White Blood Count 6.2 10^3/uL (3.6-10.2)
[2022-12-11 07:21] LABS: Creatinine, Serum 1.4 mg/dL (0.67-1.17)
[2022-12-11] MEDS: Enoxaparin 40 MG/0.4 ML SYR SUBCUT SCH (08:44)
[2022-12-11] MEDS: Carbidopa/Levodop 25/100 MG TAB PO SCH ×2 (08:50→15:10)
[2022-12-11] MEDS: CMCS: Entecavir 0.5 mg TAB (NF) PO SCH (08:52)
[2022-12-11] MEDS: DOLUTEGRAVIR 50 MG PO SCH (08:52)
[2022-12-11] MEDS: TENOFOVIR ALAFENAMIDE PO SCH (08:54)
[2022-12-11] MEDS: EMTRICITABINE PO SCH (08:54)
[2022-12-11 14:36] VITALS: BP 121/74
== END 2022-12-11 15:25 | disposition home or self-care (01) | DRG 975 ==
LOC: ED 12:30 → EDHOLD 12:30 → MED 19:04 → SUATTDRO 19:04 → MED 21:20 → SUATTDRO 12-06 12:46
PROVIDERS: ADMIT Internal Medicine; ATTEND Internal Medicine
PROC: O.GIEGD (2022-12-10 14:45)